=== PATIENT | male | born 1960 | race Hispanic/Latino ===

== ENCOUNTER 2018-11-01 11:45 | Emergency (ER) | payer SELFPAY ==
--- NOTE | 2018-11-01 13:12 | RAD REPORT ---
EXAM DESCRIPTION: RAD - Chest Single View - 11/01/2018 1:00 pm CLINICAL HISTORY: Back pain thoracic pain COMPARISON: AP chest November 2008 TECHNIQUE: AP portable chest image was obtained 1255 hours . FINDINGS: Lung volumes are low. This accentuates the interstitial pattern. Patient has had progressi on of interstitial disease since prior imaging. This is accentuated by the shallow inspiration. No pe ripheral mass or consolidations seen. Minimal lung base atelectasis noted. No failure or volume overl oad. Trachea is midline. Heart and vasculature are normal. No measurable pleural effusion and no pneumotho rax. No acute bone finding seen. Rib detail is limited. Left-sided rib detail is provided in separate report. No acute aortic findings suspected. IMPRESSION: No pneumothorax, pulmonary contusion or acute chest finding. Mild chronic interstitial lung disease is present showing onset or progression from the 2008 study.
--- NOTE | 2018-11-01 13:15 | RAD REPORT ---
EXAM DESCRIPTION: RAD - Ribs Left - 11/01/2018 1:00 pm CLINICAL HISTORY: Fall, trauma the posterior left ribcage, left-sided chest and rib pain COMPARISON: Portable chest same date FINDINGS: Lung volumes are low. No pulmonary contusion or pneumothorax seen. There is evidence for l jany base atelectasis. Nondisplaced fractures are evident in the posterior ninth and tenth ribs. Detai l is somewhat limited. These are linearly arranged and not suspected to be pathologic. IMPRESSION: Nondisplaced fractures are evident at the posterior left ninth and tenth ribs. Lung base atelectasis is present on this shallow inspiration examination. Pneumothorax and pulmonary contusion not suspected.
--- NOTE | 2018-11-01 13:48 | ER ---
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 Care prior to arrival: None. Mechanism of Injury: Fall down steps. Trauma event details: Injury occurred in the [facility], Injury occurred: at home. Injury occurred: November 01, 2018 Injury occurred at: 11:00. 12:00 Method Of Arrival: Ambulatory aj 12:00 Acuity: ROSELIA 3 aj 12:03 Transition of care: patient was not received from another setting of care. Onset of aj symptoms was November 01, 2018. Risk Assessment: Do you want to hurt yourself or someone else? Patient reports no desire to harm self or others. Initial Sepsis Screen: Does the patient meet any 2 criteria? No. Patient's initial sepsis screen is negative. Does the patient have a suspected source of infection? No. Patient's initial sepsis screen is negative. Trauma Activation: Not Applicable Physician: ED Physician; Name: ; Notified At: ; Arrived At: Physician: General Surgeon; Name: ; Notified At: ; Arrived At: Physician: Radiology; Name: ; Notified At: ; Arrived At: Physician: Respiratory; Name: ; Notified At: ; Arrived At: Physician: Lab; Name: ; Notified At: ; Arrived At: Historical: - Allergies: 12:03 No Known Allergies; aj - Immunization history:: Adult Immunizations up to date. - Social history:: Smoking status: Patient/guardian denies using tobacco. - Immunization history: Last tetanus immunization: > 10 years ago unknown. - Ebola Screening: : Patient negative for fever greater than or equal to 101.5 degrees Fahrenheit, and additional compatible Ebola Virus Disease symptoms Patient denies exposure to infectious person Patient denies travel to an Ebola-affected area in the 21 days before illness onset No symptoms or risks identified at this time. Screenin:01 Abuse screen: Denies threats or abuse. Denies injuries from another. Tuberculosis aj screening: No symptoms or risk factors identified. Primary Survey: 12:10 NO uncontrolled hemorrhage observed. A: The patient is alert. Airway: patent, No sg supplemental oxygen in use on arrival. O2 via pt remains o2 saturation of above 92 % on room air, no s/s of respiratory distress noted or reported Oral cavity: clear, Trachea midline. Breathing/Chest: Respiratory pattern: regular, Respiratory effort: spontaneous, unlabored, Breath sounds: clear, bilaterally. Chest inspection: symmetrical rise and fall of the chest. Circulation: Heart tones present. Pulses: palpable right radial artery and left radial artery. Skin color: pink, Skin temperature: warm. Disability Alert. Exposure/Environment: All clothing and personal items were removed. Forensic evidence collection is not deemed to be indicated at this time. Items placed in patient belonging bag. There is no evidence of uncontrolled external bleeding. No obvious injuries are noted at this time. A warming method has been applied: A warm blanket has been provided to the patient. 12:20 Reassessment Airway Airway Breathing/Chest Respiratory pattern Regular Respiratory sg effort Spontaneous Unlabored Breath sounds Clear Chest inspection Symmetrical Circulation Heart tones Present Pulses Palpable Color [place] Temperature Warm Dry Disability Alert. Secondary Survey: 12:10 HEENT: No deficits noted. Head No injury/deformity Face No injury/deformity Eyes: No sg injury or deformity noted. Ears: clear Nose: clear. Gastrointestinal: No deficits noted. Abdomen is soft, flat, non-distended. : No signs and/or symptoms were reported regarding the genitourinary system. Musculoskeletal: Circulation, motion, and sensation intact. Range of motion: intact in all extremities. Injury Description: Abrasion sustained to left subscapular area. Assessment: 12:01 General: Appears in no apparent distress. uncomfortable, Behavior is calm, cooperative, aj appropriate for age. Pain: Complains of pain in left subscapular area and left mid back. Neuro: Level of Consciousness is awake, alert, obeys commands, Oriented to person, place, time, situation, Appropriate for age. Respiratory: Airway is patent Respiratory effort is even, unlabored, Respiratory pattern is regular, symmetrical. Derm: Skin is intact, is healthy with good turgor, Skin is pink, warm \T\ dry. normal. Injury Description: Abrasion sustained to left subscapular area and left mid back. Vital Signs: 12:01 BP 153 / 97; Pulse 81; Resp 17; Temp 98.0; Pulse Ox 97% on R/A; Weight 56.7 kg; Height aj 5 ft. 10 in. (177.80 cm); 12:01 Body Mass Index 17.94 (56.70 kg, 177.80 cm) aj [place] Score: 12:01 Eye Response: spontaneous(4). Verbal Response: oriented(5). Motor Response: obeys aj commands(6). Total: 15. Trauma Score (Adult): 12:01 Eye Response: spontaneous(1); Verbal Response: oriented(1); Motor Response: obeys aj commands(2); Systolic BP: > 89 mm Hg(4); Respiratory Rate: 10 to 29 per min(4); [place] Score: 15; Trauma Score: 12 ED Course: 11:51 Patient arrived in ED. dl4 11:51 None, None is Private Physician. dl4 12:00 Patient maintains SpO2 saturation greater than 95% on room air. Response to oxygen sg therapy: symptoms remain unchanged. Thermoregulation: warm blanket given to patient. 12:01 Triage completed. aj 12:01 Patient has correct armband on for positive identification. aj 12:03 Arm band placed on left wrist. Patient placed in an exam room. aj 12:09 Nicholas Hartley, RN is Primary Nurse. sg 12:18 Von Robb MD is Attending Physician. kdr 12:59 X-ray completed. jr1 13:02 CXR XRAY In Process Unspecified. EDMS 13:03 Ribs Left XRAY In Process Unspecified. EDMS 14:00 No provider procedures requiring assistance completed. Patient did not have IV access sg during this emergency room visit. Administered Medications: 13:50 Drug: Tetanus-Diphtheria Toxoid Adult 0.5 ml {Physician Intensivist: [employer]. Exp: sg 06/26/2020. Lot #: [id number]. } Route: IM; Site: left deltoid; Outcome: 13:47 Discharge ordered by . kdr 14:00 Discharged to home ambulatory, with friend. sg 14:00 Discharged to instructed on appropriate use of Incentive Spirometry, pt demonstrated understanding 14:00 Condition: good 14:00 Discharge instructions given to patient, Instructed on discharge instructions, follow up and referral plans. medication usage, safety practices, Demonstrated understanding of instructions, follow-up care, medications, Prescriptions given X 2. 14:00 Patient's length of stay in the Emergency Department was greater than 2 hours. sg radiology, ERP dispo timePatient's length of stay extended due to 14:05 Patient left the ED. sg Signatures: Dispatcher [employer] EDMS Nicholas Hartley RN RN sg Myers, Amanda, RN RN aj Rittger, Kevin, MD MD kdr Ringgold, Jennifer jr Luc Calderon dl4
--- NOTE | 2018-11-01 13:48 | EDPHYS ---
Physician Documentation [facility] Name: Bobby Krishnamurthy Age: 58 yrs Sex: Male : 1960 Arrival Date: 11/01/2018 Time: 11:51 Bed 18 Private MD: None, None ED Physician Von Robb HPI: 11/01 13:42 This 58 yrs old Male presents to ER via Ambulatory with complaints of Back kdr Injury. 13:42 The patient presents with pain that is acute. The symptoms are located in the left kdr subscapular area. Onset: The symptoms/episode began/occurred gradually, just prior to arrival. The pain radiates. Associated signs and symptoms: The patient has no apparent associated signs or symptoms. The problem was sustained during a fall, while sitting, Fell backwards about 5,. Modifying factors: The patient symptoms are alleviated by nothing, the patient symptoms are aggravated by any movement, coughing. Severity of symptoms: At their worst the symptoms were moderate, in the emergency department the symptoms are unchanged. The patient has experienced a previous episode. The patient has not recently seen a physician. Historical: - Allergies: 12:03 No Known Allergies; aj - Immunization history:: Adult Immunizations up to date. - Social history:: Smoking status: Patient/guardian denies using tobacco. - Immunization history: Last tetanus immunization: > 10 years ago unknown. - Ebola Screening: : Patient negative for fever greater than or equal to 101.5 degrees Fahrenheit, and additional compatible Ebola Virus Disease symptoms Patient denies exposure to infectious person Patient denies travel to an Ebola-affected area in the 21 days before illness onset No symptoms or risks identified at this time. ROS: 13:42 Constitutional: Negative for fever, chills, and weight loss, Eyes: Negative for injury, kdr pain, redness, and discharge, ENT: Negative for injury, pain, and discharge, Neck: Negative for injury, pain, and swelling, Cardiovascular: Negative for chest pain, palpitations, and edema, Respiratory: Negative for shortness of breath, cough, wheezing, and pleuritic chest pain, Abdomen/GI: Negative for abdominal pain, nausea, vomiting, diarrhea, and constipation, Back: Negative for injury and pain, : Negative for injury, bleeding, discharge, and swelling, MS/Extremity: Negative for injury and deformity, Neuro: Negative for headache, weakness, numbness, tingling, and seizure activity. Psych: Negative for depression, anxiety, suicide ideation, homicidal ideation, and hallucinations, Allergy/Immunology: Negative for hives, rash, and allergies, Endocrine: Negative for neck swelling, polydipsia, polyuria, polyphagia, and marked weight changes, Hematologic/Lymphatic: Negative for swollen nodes, abnormal bleeding, and unusual bruising. 13:42 Skin: Positive for abrasion(s), of the left subscapular area and left mid back. Exam: 13:42 Constitutional: This is a well developed, well nourished patient who is awake, alert, kdr and in no acute distress. Head/Face: Normocephalic, atraumatic. Eyes: Pupils equal round and reactive to light, extra-ocular motions intact. Lids and lashes normal. Conjunctiva and sclera are non-icteric and not injected. Cornea within normal limits. Periorbital areas with no swelling, redness, or edema. Neck: Trachea midline, no thyromegaly or masses palpated, and no cervical lymphadenopathy. Supple, full range of motion without nuchal rigidity, or vertebral point tenderness. No Meningismus. Cardiovascular: Regular rate and rhythm with a normal S1 and S2. No gallops, murmurs, or rubs. Normal PMI, no JVD. No pulse deficits. Respiratory: Lungs have equal breath sounds bilaterally, clear to auscultation and percussion. No rales, rhonchi or wheezes noted. No increased work of breathing, no retractions or nasal flaring. Abdomen/GI: Soft, non-tender, with normal bowel sounds. No distension or tympany. No guarding or rebound. No evidence of tenderness throughout. Back: No spinal tenderness. No costovertebral tenderness. Full range of motion. Skin: Warm, dry with normal turgor. Normal color with no rashes, no lesions, and no evidence of cellulitis. MS/ Extremity: Pulses equal, no cyanosis. Neurovascular intact. Full, normal range of motion. Neuro: Awake and alert, GCS 15, oriented to person, place, time, and situation. Cranial nerves II-XII grossly intact. Motor strength 5/5 in all extremities. Sensory grossly intact. Cerebellar exam normal. Normal gait. Psych: Awake, alert, with orientation to person, place and time. Behavior, mood, and affect are within normal limits. 13:42 Chest/axilla: Inspection: abrasion, Palpation: no acute changes. 13:42 Back: pain, that is moderate, of the left subscapular area, ROM is painful, with all movement, normal spinal alignment noted, CVA tenderness, is absent, vertebral tenderness, is not appreciated. Vital Signs: 12:01 BP 153 / 97; Pulse 81; Resp 17; Temp 98.0; Pulse Ox 97% on R/A; Weight 56.7 kg; Height aj 5 ft. 10 in. (177.80 cm); 12:01 Body Mass Index 17.94 (56.70 kg, 177.80 cm) aj [place] Coma Score: 12:01 Eye Response: spontaneous(4). Verbal Response: oriented(5). Motor Response: obeys aj commands(6). Total: 15. Trauma Score (Adult): 12:01 Eye Response: spontaneous(1); Verbal Response: oriented(1); Motor Response: obeys aj commands(2); Systolic BP: > 89 mm Hg(4); Respiratory Rate: 10 to 29 per min(4); [place] Score: 15; Trauma Score: 12 MDM: 13:42 Data reviewed: vital signs, nurses notes, radiologic studies. Counseling: I had a kdr detailed discussion with the patient and/or guardian regarding: the historical points, exam findings, and any diagnostic results supporting the discharge/admit diagnosis, radiology results, the need for outpatient follow up. Special discussion: I discussed with the patient/guardian in detail that at this point there is no indication for admission to the hospital. It is understood, however, that if the symptoms persist or worsen the patient needs to return immediately for re-evaluation. 13:47 Patient medically screened. kdr 11/01 12:32 Order name: CXR XRAY; Complete Time: 13:38 kdr 11/01 12:32 Order name: Ribs Left XRAY; Complete Time: 13:38 kdr Administered Medications: 13:50 Drug: Tetanus-Diphtheria Toxoid Adult 0.5 ml {Design Maintenance Engineer: [employer]. Exp: sg 06/26/2020. Lot #: [id number]. } Route: IM; Site: left deltoid; Disposition: 11/01/18 13:47 Discharged to Home. Impression: Multiple fractures of ribs, left side - 9 \T\ 10. - Condition is Stable. - Discharge Instructions: Rib Fracture, [id number]. - Prescriptions for Tylenol- Codeine #3 300-30 mg Oral Tablet - take 2 tablets by ORAL route every 6 hours As needed; 24 tablet. Cyclobenzaprine 10 mg Oral Tablet - take 1 tablet by ORAL route every 8 hours As needed; 15 tablet. - Medication Reconciliation Form, Thank You Letter, Prescription Opioid Use form. - Follow up: Private Physician; When: 2 - 3 days; Reason: If symptoms return, Further diagnostic work-up, Recheck today's complaints, Continuance of care, Re-evaluation by your physician. - Problem is new. - Symptoms have improved. Signatures: Dispatcher [employer] EDNicholas Medina RN RN sg Myers, Amanda, RN RN aj Rittger, Kevin, MD MD kdr Corrections: (The following items were deleted from the chart) 14:05 13:47 11/01/2018 13:47 Discharged to Home. Impression: Multiple fractures of ribs, left sg side - 9 \T\ 10. Condition is Stable. Forms are Medication Reconciliation Form, Thank You Letter, Antibiotic Education, Prescription Opioid Use. Follow up: Private Physician; When: 2 - 3 days; Reason: If symptoms return, Further diagnostic work-up, Recheck today's complaints, Continuance of care, Re-evaluation by your physician. Problem is new. Symptoms have improved. kdr
[2018-11-01] MEDS ORDERED: TETANUS & DIPHTHERIA TOX,ADULT 0.5 ML VIAL ONE (14:12)
== END 2018-11-01 14:05 | disposition home or self-care (01) ==
LOC: ER 11:45
DX: S22.42XA Multiple fractures of ribs, left side, initial encounter for closed fracture (principal); W19.XXXA Unspecified fall, initial encounter; Y93.9 Activity, unspecified; Y92.9 Unspecified place or not applicable; Z23 Encounter for immunization
CPT/HCPCS: 71045; 90471; 90714; 99284